=== PATIENT | male | born 1990 | race Caucasian/White ===

== ENCOUNTER 2018-09-15 22:33 | Emergency (ER) | payer SELFPAY ==
[~2018-09-15] VITALS: Ht 175.3 cm; Wt 67.3 kg
[2018-09-15 22:45] VITALS: Ht 175.3 cm; Wt 67.3 kg
--- NOTE | 2018-09-16 02:23 | ERD ---
ER Documentation Chief Complaint Chief Complaint RECTAL PAIN; PREVIOUS SURGERY FOR SAME HPI This is a 28-year-old male presents emergency department complaints of rectal pain. Stated that he has history of the same and had a surgery in [place]. Denies headache, head injury, loss of consciousness, dizziness, neck pain, neck stiffness, throat pain, difficulty swallowing, difficulty breathing lying flat, shoulder pain, chest pain, back pain, abdominal pain, nausea, vomiting, constipation, diarrhea, urinary symptoms, loss of bowel and bladder control, trauma, injury, falls, difficulty walking due to pain, numbness or tingling sensation, calf pain, recent travel, recent major surgery in the last 3 weeks, calf pain, recent long travel, recent exposure to any illness, recent antibiotic use in the last 3 months, fever, chills, seizures. Past medical history: Denies. Surgical history: Denies. Social: Denies smoking, use of alcoholic beverages, use of illegal drugs. ROS All systems reviewed and are negative except as per history of present illness. Medications Home Meds Active Scripts Ibuprofen* (Motrin*) 800 Mg Tab, 800 MG PO Q6H PRN for PAIN AND OR ELEVATED TEMP, #30 TAB Prov:SAIDA WHITAKER 09/16/18 Tramadol HCl (Tramadol HCl) 50 Mg Tablet, 50 MG PO Q4 PRN for SEVERE PAIN LEVEL 7-10, #5 TAB Prov:SAIDA WHITAKER 09/16/18 Docusate Sodium* (Colace*) 100 Mg Capsule, 100 MG PO BID PRN for CONSTIPATION, #30 CAP Prov:SAIDA WHITAKER 09/16/18 Ciprofloxacin Hcl* (Ciprofloxacin Hcl*) 500 Mg Tablet, 500 MG PO BID for 10 Days, TAB Prov:SAIDA WHITAKER 09/16/18 Metronidazole* (Flagyl*) 500 Mg Tablet, 500 MG PO TID for 10 Days, TAB Prov:SAIDA WHITAKER 09/16/18 Amoxicillin/Potassium Clav (Amox-Clav 875-125 mg Tablet) 875-125 mg Tab, 1 TAB PO BID for 10 Days, #20 TAB Prov:SAIDA WHITAKER 09/16/18 Allergies Allergies: Coded Allergies: No Known Allergy (Unverified , 09/15/18) PMhx/Soc Medical and Surgical Hx: pt denies Medical Hx Hx Alcohol Use: No Hx Substance Use: No Hx Tobacco Use: Yes Smoking Status: Current every day smoker Physical Exam Vitals Physical Exam Const: No acute distress Head: Atraumatic Eyes: Normal Conjunctiva. ENT: Normal External Ears, Nose and Mouth. Neck: Full range of motion. No meningismus. Resp: Clear to auscultation bilaterally Cardio: Regular rate and rhythm, no murmurs Abd: Soft, non tender, non distended. Normal bowel sounds. Negative Caceres sign. Negative [place]wood sign (heel jar test). Negative psoas sign. Negative Rovsing sign. Able to jump 10 times without developing lower abdominal pain. No CVA tenderness. Ambulatory with steady gait and without pain to abdomen. Rectal area: Examined with male manager of transportation, Roni ARAUZ. Left side has a swelling with tenderness that extends to the anorectum. No bleeding. No external hemorrhoids. Skin: No petechiae or rashes. Color appears normal for ethnicity. No skin tenting. No signs of severe dehydration. Back: No midline or flank tenderness Ext: No cyanosis, or edema Neur: Awake and alert. No neurological deficits. Psych: Normal Mood and Affect Results 24 hrs Laboratory Tests Test 09/16/18 02:46 09/16/18 02:47 Prothrombin Time 12.1 Sec Prothrombin Time Ratio 0.9 INR International Normalized Ratio 0.89 Activated Partial Thromboplast Time 25.5 Sec White Blood Count 14.8 10^3/ul Red Blood Count 4.99 10^6/ul Hemoglobin 14.9 g/dl Hematocrit 43.9 % Mean Corpuscular Volume 88.0 fl Mean Corpuscular Hemoglobin 29.9 pg Mean Corpuscular Hemoglobin Concent 33.9 g/dl Red Cell Distribution Width 12.3 % Platelet Count 239 10^3/UL Mean Platelet Volume 9.6 fl Immature Granulocytes % 0.500 % Neutrophils % 75.8 % Lymphocytes % 17.1 % Monocytes % 5.8 % Eosinophils % 0.5 % Basophils % 0.3 % Nucleated Red Blood Cells % 0.0 /100WBC Immature Granulocytes # 0.080 10^3/ul Neutrophils # 11.2 10^3/ul Lymphocytes # 2.5 10^3/ul Monocytes # 0.9 10^3/ul Eosinophils # 0.1 10^3/ul Basophils # 0.0 10^3/ul Nucleated Red Blood Cells # 0.0 10^3/ul Sodium Level 144 mmol/L Potassium Level 4.4 mmol/L Chloride Level 107 mmol/L Carbon Dioxide Level 26 mmol/L Anion Gap 11 Blood Urea Nitrogen 8 mg/dl Creatinine 0.77 mg/dl Est Glomerular Filtrat Rate mL/min > 60 mL/min Glucose Level 98 mg/dl Calcium Level 9.5 mg/dl Total Bilirubin 0.3 mg/dl Direct Bilirubin 0.00 mg/dl Indirect Bilirubin 0.3 mg/dl Aspartate Amino Transf (AST/SGOT) 24 IU/L Alanine Aminotransferase (ALT/SGPT) 26 IU/L Alkaline Phosphatase 46 IU/L Total Protein 8.3 g/dl Albumin 4.7 g/dl Globulin 3.60 g/dl Albumin/Globulin Ratio 1.30 Amylase Level 150 U/L Lipase 623 U/L Current Medications Medications Dose Sig/Ganesh Start Time Status Last (Trade) Ordered Route PRN Stop Time Admin Dose Reason Admin Morphine 4 mg ONCE STAT 09/16/18 DC 09/16/18 Sulfate IV 02:34 09/16/18 03:07 (morphine) 02:37 Ondansetron 4 mg ONCE STAT 09/16/18 DC 09/16/18 HCl (Zofran IV 02:34 09/16/18 03:07 Inj) 02:37 Sodium 1,000 ml @ Q1H ONCE 09/16/18 DC 09/16/18 Chloride 1,000 mls/hr IV 03:00 09/16/18 03:06 03:59 Lidocaine 20 ml ONCE ONCE 09/16/18 DC (Xylocaine SC 05:00 09/16/18 1% (Mdv) 20 05:01 ml) 875 mg ONCE ONCE 09/16/18 DC 09/16/18 Amoxicillin/ PO 06:00 09/16/18 06:33 Clavulanate 06:03 Potassium (Augmentin) 500 mg ONCE ONCE 09/16/18 DC 09/16/18 Metronidazole PO 06:00 09/16/18 06:33 (Flagyl) 06:03 750 mg ONCE ONCE 09/16/18 DC 09/16/18 Ciprofloxacin PO 06:00 09/16/18 06:50 (Cipro) 06:03 Procedures/MDM This case was discussed with my supervising physician, Dr. Demetrio Moon who agreed for me to do a CT of the abdomen and pelvis and blood works. Diagnostic tests: Urinalysis: Reviewed. Blood works: Reviewed. CT of the abdomen and pelvis without contrast: Mild bilateral medullary nephrocalcinosis. No obstructive uropathy bilaterally. Moderate stool burden throughout the colon and rule out constipation. No evidence of appendicitis. Negative intra-abdominal free air fluid abscesses or lymphadenopathy. Case was discussed with my supervising physician, Dr. Demetrio Moon who agreed for me to drain the abscess. Treatment: Saline lock. Normal saline IV bolus. Morphine IV.. Zofran IV. Procedure: Incision and drainage of abscess. Patient verbally consented for me to the procedure. Betadine prep. Lidocaine 1% 1 cc SC. Scalpel used for very small incision. Drained mucopurulent discharge. Dressing was applied. Re-evaluation: No active bleeding. Patient tolerated the procedure well. No abdominal tenderness. No CVA tenderness. Stated that he feels much better at this time and that he is ready to go home. Ambulatory with steady gait. Stated that he is comfortable to go home. Patient was discharged with family members. Differential diagnosis I have low suspicion for sepsis, deep space infection, perirectal abscess, hemorrhage, acute abdomen. Final diagnosis: Abscess with incision and drainage. Prescription: Flagyl. Cipro. Augmentin. Motrin. Tramadol. Docusate. Follow-up with PCP in the next 24-48 hours. Come back in 2 days for wound check. Come back here in the emergency department for any new symptoms or any worsening symptoms. All questions and concerns were answered. Patient and family members verbalized understanding and agreed with plan of care. Hemodynamically stable on discharge. Departure Diagnosis: Primary Impression: Abscess Condition: Stable Additional Instructions: Follow-up with PCP in the next 24-48 hours. Come back in 2 days for wound check. Come back here in the emergency department for any new symptoms or any worsening symptoms. SAIDA WHITAKER Sep 16, 2018 02:23
[2018-09-16] MEDS ORDERED: morphine 4 MG/ML VIAL IV STA (02:34)
[2018-09-16] MEDS ORDERED: ONDANSETRON 4 MG INJ IV STA (02:34)
[2018-09-16] MEDS ORDERED: SOD CHLORIDE 0.9% 1,000 ML IV ONE (03:00)
[2018-09-16] MEDS ORDERED: LIDOCAINE 1% (MDV) 20 ML INJ SC ONE (05:00)
[2018-09-16] MEDS ORDERED: AMOX1TAB10 PO (05:23)
[2018-09-16] MEDS ORDERED: METR500T PO (05:24)
[2018-09-16] MEDS ORDERED: CIPR500T4 PO (05:24)
[2018-09-16] MEDS ORDERED: DOCU-144 PO (05:24)
[2018-09-16] MEDS ORDERED: IBUP800T48 PO (05:25)
[2018-09-16] MEDS ORDERED: TRAM50TA2 PO (05:25)
[2018-09-16] MEDS ORDERED: metroNIDAZOLE 500 MG TAB PO ONE (06:00)
[2018-09-16] MEDS ORDERED: CIPROFLOXACIN 250 MG TAB PO ONE (06:00)
[2018-09-16] MEDS ORDERED: AMOXICILLIN/CLAV 875 MG TAB PO ONE (06:00)
[2018-09-16 06:57] VITALS: BP 120/82; PULSE 68; RESP 18
== END 2018-09-16 06:57 | disposition home or self-care (01) ==
LOC: FTE 22:33
DX: K61.1 Rectal abscess (principal); F17.210 Nicotine dependence, cigarettes, uncomplicated; R10.9 Unspecified abdominal pain
CPT/HCPCS: 45005; 74176; 80053; 82150; 83690; 85025; 85610; 85730; 96374; 96375; 99285; J2270; J2405; J7030